=== PATIENT | female | born 1990 | race Caucasian/White ===

== ENCOUNTER → 2017-01-04 | Outpatient (CLI) | payer BC ==
[2017-01-04 19:20] LABS: Basophils % (A) 0 %; CH 29.7; Eosinophils # (A) 0.2 k/uL (0-0.7); Eosinophils % (A) 3 %; HCT 37.2 % (34.0-46.0); HDW 2.39; HGB 12.5 gm/dL (11.4-16.0); Luc # (Auto) 0.11; Luc % (Auto) 2; Lymphocytes # (A) 1.7 k/uL (1.0-4.8); Lymphocytes % (A) 26 %; MCH 29.3 pg (25.0-35.0); MCHC 33.5 g/dL (31.0-37.0); MCV 87.6 fL (80.0-100.0); Mean Platelet Volume 9.2; Monocytes # (A) 0.3 k/uL (0-1.0); Monocytes % (A) 5 %; Neutrophils # (A) 4.1 k/uL (1.3-7.7); Neutrophils % (A) 65 %; RBC 4.25 m/uL (3.80-5.40); RDW 12.6 % (11.5-15.5); WBC 6.4 k/uL (3.8-10.6); WBC (Perox) 6.53
[2017-01-04 19:35] LABS: ALT 23 U/L (9-52); AST 24 U/L (14-36); Alkaline Phosphatase 73 U/L (38-126); Anion Gap 10 mmol/L; Blood Urea Nitrogen 10 mg/dL (7-17); Calcium 8.8 mg/dL (8.4-10.2); Carbon Dioxide 25 mmol/L (22-30); Chloride 105 mmol/L (98-107); Cholesterol 133 mg/dL (<200); Glucose 90 mg/dL (74-99); HDL Cholesterol 46 mg/dL (40-60); Non-African American GFR(MDRD) >60 (>60 ml/min/1.73 sqM); Sodium 140 mmol/L (137-145); Total Bilirubin 0.4 mg/dL (0.2-1.3); Total Protein 7.1 g/dL (6.3-8.2); Triglycerides 66 mg/dL (<150)
== END ==
LOC: MMGSC 15:55
PROVIDERS: ATTEND Family Medicine
DX: Z00.00 Encounter for general adult medical examination without abnormal findings (principal)
CPT/HCPCS: 36415; 80053; 80061; 84439; 84443; 85025

== ENCOUNTER → 2018-05-17 | Outpatient (CLI) | payer BC ==
[2018-05-17 17:12] LABS: HCT 39.1 % (34.0-46.0); HGB 12.7 gm/dL (11.4-16.0); MCH 28.9 pg (25.0-35.0); MCHC 32.4 g/dL (31.0-37.0); MCV 89.4 fL (80.0-100.0); Mean Platelet Volume 8.1; Platelet Count 198 k/uL (150-450); RBC 4.38 m/uL (3.80-5.40); WBC 5.5 k/uL (3.8-10.6)
[2018-05-17 17:13] LABS: Appearance,Urine Clear (Clear); Bilirubin,Urine Negative (Negative); Blood,Urine Negative (Negative); Color,Urine Yellow; Glucose,Urine (UA) Negative (Negative); Ketones,Urine Negative (Negative); Leukocyte Esterase,Urine Negative (Negative); Mucus,Urine Occasional /hpf; Nitrite,Urine Negative (Negative); PH, Urine 6.5 (5.0-8.0); Protein,Urine 1+ (Negative); RBC,Urine 1 /hpf (0-5); Specific Gravity,Urine 1.028 (1.001-1.035); Squamous Epithelial Cell,Urine 3 /hpf (0-4); Urobilinogen,Urine <2.0 mg/dL (<2.0); WBC,Urine 1 /hpf (0-5)
[2018-05-17 17:26] LABS: ALT 31 U/L (9-52); AST 30 U/L (14-36); Albumin 4.4 g/dL (3.5-5.0); Alkaline Phosphatase 69 U/L (38-126); Anion Gap 9 mmol/L; Blood Urea Nitrogen 15 mg/dL (7-17); Calcium 9.4 mg/dL (8.4-10.2); Carbon Dioxide 28 mmol/L (22-30); Chloride 102 mmol/L (98-107); Glucose 85 mg/dL (74-99); Phosphorus 4.3 mg/dL (2.5-4.5); Sodium 139 mmol/L (137-145); Total Bilirubin 0.4 mg/dL (0.2-1.3); Total Protein 7.8 g/dL (6.3-8.2)
--- NOTE | 2018-05-17 17:55 | US ---
EXAMINATION TYPE: US kidneys/renal and bladder DATE OF EXAM: 05/17/2018 COMPARISON: NONE CLINICAL HISTORY: Chronic kidney disease N18.9. Pt states protein found in urine EXAM MEASUREMENTS: Right Kidney: 12.4 x 4.6 x 4.7 cm Left Kidney: 11.1 x 4.1 x 3.8 cm Right Kidney: wnl, lower pole gassed out Left Kidney: wnl, lower pole gassed out Bladder: Pt just voided prior to exam, not fully distended Bilateral Jets seen: No There is no evidence for hydronephrosis at this point in time. No nephrolithiasis is seen. No caren s are identified. The urinary bladder is anechoic. Bilateral ureteral jets are seen. IMPRESSION: No evidence of renal mass or obstruction. Urinary bladder is sonolucent.
== END | disposition home or self-care (01) ==
LOC: RADUSWWP 16:35
PROVIDERS: ATTEND Internal Medicine Nephrology
DX: N18.9 Chronic kidney disease, unspecified (principal); D63.1 Anemia in chronic kidney disease; N39.0 Urinary tract infection, site not specified
CPT/HCPCS: 76770; 80053; 81001; 84100; 85027

== ENCOUNTER → 2022-01-31 | Outpatient (CLI) | payer BC ==
--- NOTE | 2022-02-01 07:57 | US ---
EXAMINATION TYPE: US axilla RT DATE OF EXAM: 01/31/2022 COMPARISON: NONE CLINICAL HISTORY: 31-year-old female N63.31 RT AXILLARY NODULE. Right axillary nodule. TECHNIQUE: Targeted ultrasound examination right axilla at the patient's palpable site of concern. FINDINGS: Stave Machine Tender notes: Two hypoechoic areas with hyperechoic centers seen within the right axilla at patient's area of norman rn/ palpable area. #1: 1.9 x 2.1 x 0.8 cm. #2: 2.1 x 2.1 x 0.8 cm. Cortical thickening of 5 mm and 4 mm. IMPRESSION: Two mildly enlarged and mildly thickened lymph nodes within the right axilla at the patient's palpabl e site of concern. These measure up to 2.1 cm short axis with cortical thickening up to 5 mm. Clinica l surveillance recommended. These are probably reactive/post inflammatory. If any suspicious clinical features or progressive enlargement is noted, the area can be re-imaged and tissue sampling can be c onsidered.
== END | disposition home or self-care (01) ==
LOC: RADUSWWP 16:07
PROVIDERS: ATTEND Family Medicine
DX: N63.31 Unspecified lump in axillary tail of the right breast (principal)

== ENCOUNTER → 2022-08-18 | Outpatient (CLI) | payer BC ==
--- NOTE | 2022-08-19 04:24 | MR ---
EXAMINATION TYPE: MR brain wo/w con DATE OF EXAM: 08/18/2022 COMPARISON: None HISTORY: Amnesia CONTRAST: Standard multiplanar, multisequence MRI departmental protocol images were obtained without contrast a nd with 7 mL intravenous Gadavist gadolinium contrast. The ventricles and sulci appear normal. There is no mass effect or midline shift. No sign of intracra nial hemorrhage. Diffusion images show no sign of an acute infarct. The brainstem is intact. Corpus callosum is intact. Sella turcica appears normal. Aragon and white micheal er structures have fairly normal signal pattern. No evidence of cerebral edema. Contrast images show no pathologic enhancement. There is normal enhancement of the venous sinuses. IMPRESSION: Normal MRI scan of the brain.
== END | disposition home or self-care (01) ==
LOC: RADMRIMAIN 19:16
PROVIDERS: ATTEND Psychiatry & Neurology Neurology
DX: R41.3 Other amnesia (principal)
CPT/HCPCS: 70553; A9585

== ENCOUNTER → 2024-02-02 | Outpatient (CLI) | payer BC ==
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
== END | disposition home or self-care (01) ==
LOC: RADMRIMAIN 06:57
PROVIDERS: ATTEND Internal Medicine Rheumatology
DX: M50.122 Cervical disc disorder at C5-C6 level with radiculopathy (principal)
CPT/HCPCS: 72141